=== PATIENT | female | born 1975 | race Caucasian/White ===

== ENCOUNTER 2024-05-19 07:15 | Day surgery (SDC) | payer BC ==
[~2024-05-19 07:15] MED LIST: Sodium Chloride 0.9% 10 ML Syringe FLUSH PRN; Sodium Chloride 0.9% 2.5 ML Syringe FLUSH PRN; Sodium Chloride 0.9% 20 ML SDV IV PRN
[2024-05-19] MEDS ORDERED: propofoL 500 MG/50 ML 50 ML ONE (07:25)
[2024-05-19] MEDS ORDERED: Lidocaine 2% 5 ML SDV ONE (07:26)
[2024-05-19] MEDS: Lactated Ringers 1,000 ML IV SCH (07:56)
[2024-05-19 10:02] VITALS: BP 115/74; PULSE 82
== END 2024-05-19 09:41 | disposition home or self-care (01) ==
LOC: MW.SDS 07:15
PROVIDERS: ATTEND Surgery
DX: Z12.11 Encounter for screening for malignant neoplasm of colon (principal); Z80.0 Family history of malignant neoplasm of digestive organs; E78.00 Pure hypercholesterolemia, unspecified
CPT/HCPCS: 45378; 81025; J2003; J2704; J7120